=== PATIENT | male | born 1985 | race Caucasian/White ===

== ENCOUNTER 2018-07-01 09:56 | Emergency (ER) | payer SELFPAY ==
[2018-07-01] MEDS ORDERED: Tetan/Diph/Pertus SYR(Tdap)* 0.5 ML SYR(BOOSTRIX) use SYR IM ONE (10:18)
[2018-07-01 10:56] VITALS: BP 136/94
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
== END 2018-07-01 10:55 | disposition home or self-care (01) ==
LOC: ED 09:56
DX: S61.511A Laceration without foreign body of right wrist, initial encounter (principal); Z02.3 Encounter for examination for recruitment to armed forces; Z72.0 Tobacco use; W29.4XXA Contact with nail gun, initial encounter; Y92.9 Unspecified place or not applicable
CPT/HCPCS: 90471; 90715; 99282

== ENCOUNTER 2018-07-22 09:21 | Emergency (ER) | payer OTHER ==
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
[2018-07-22 11:18] VITALS: BP 111/69
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
== END 2018-07-22 11:17 | disposition home or self-care (01) ==
LOC: ED 09:21
DX: S93.401A Sprain of unspecified ligament of right ankle, initial encounter (principal); M25.571 Pain in right ankle and joints of right foot; F17.210 Nicotine dependence, cigarettes, uncomplicated; V47.5XXA Car driver injured in collision with fixed or stationary object in traffic accident, initial encounter; Y92.9 Unspecified place or not applicable
CPT/HCPCS: 99282